=== PATIENT | female | born 1945 | race Caucasian/White ===

== ENCOUNTER → 2024-03-01 14:42 | Outpatient (REF) | payer MEDICARE, OTHER, SELFPAY | LOC: HWRCS 14:42 | PROVIDERS: ATTENDING PHYSICIAN Internal Medicine Cardiovascular Disease; FAMILY PHYSICIAN Internal Medicine | DX: I48.91 Unspecified atrial fibrillation (principal) | CPT/HCPCS: 93306 ==

== ENCOUNTER → 2024-04-25 16:14 | Outpatient (REF) | payer MEDICARE, OTHER, SELFPAY ==
[2024-04-25 17:04] LABS: % Basophils 0.7 % (0-2); % Immature Granulocytes 0.2 % (0-0.5); % Monocytes 7.3 % (1.7-9.3); % Neutrophils 63.8 % (42.2-75.2); Absolute Basophils 0.1 10^3/uL (0-0.2); Absolute Eosinophils 0.7 10^3/uL (0-0.7); Absolute Lymphocytes 1.6 10^3/uL (1.2-3.4); Absolute Monocytes 0.6 10^3/uL (0.1-0.6); Absolute Neutrophils 5.2 10^3/uL (1.4-6.5); Hemoglobin 11.4 g/dL (12.0-16.0); Mean Corp Hgb Conc. 31.7 g/dL (33.0-37.0); Mean Corpuscular Hgb 30.2 pg (27.0-31.0); Mean Corpuscular Volume 95.2 fL (81.0-99.0); Nucleated Red Blood Cells % 0 %; Platelet Count 262 10^3/uL (130-400); Red Blood Cell Count 3.78 10^6/uL (4.20-5.40); Red Cell Dist. Width 12.9 % (11.5-14.5); White Blood Cell Count 8.2 10^3/uL (4.8-10.8)
[2024-04-25 17:15] LABS: ALT (SGPT) 14 U/L (0-35); AST (SGOT) 25 U/L (14-36); Albumin 4.4 g/dl (3.5-5.0); Alkaline Phosphatase 98 U/L (38-126); Blood Urea Nitrogen 12 mg/dl (7-17); Calcium 9.7 mg/dl (8.4-10.2); Carbon Dioxide 25 mmol/L (22-30); Chloride 100 mmol/L (98-107); Glucose 90 mg/dl (70-99); Potassium 5.2 mmol/L (3.5-5.1); Sodium 132 mmol/L (135-145); Total Bilirubin 0.6 mg/dl (0.2-1.3); Total Cholesterol 233 mg/dl (50-199); Total Protein 6.5 g/dl (6.3-8.2); Triglyceride 103 mg/dl (10-149); Very Low Density Lipoprotein 20 mg/dl (0-30); eGFR 57.31
[2024-04-25 17:22] LABS: HDL Cholesterol 120 mg/dl; LDL Cholesterol, Calculated 93 mg/dl
== END ==
LOC: REG 16:14
PROVIDERS: ATTENDING PHYSICIAN Family Medicine
DX: N18.31 Chronic kidney disease, stage 3a (principal); E78.00 Pure hypercholesterolemia, unspecified; E61.1 Iron deficiency
CPT/HCPCS: 36415; 80053; 80061; 82728; 85025

== ENCOUNTER → 2024-06-04 15:17 | Outpatient (REF) | payer MEDICARE, OTHER, SELFPAY ==
[2024-06-04 16:56] LABS: Blood Urea Nitrogen 16 mg/dl (7-17); Calcium 9.9 mg/dl (8.4-10.2); Carbon Dioxide 26 mmol/L (22-30); Chloride 100 mmol/L (98-107); Glucose 79 mg/dl (70-99); Potassium 4.9 mmol/L (3.5-5.1); Sodium 133 mmol/L (135-145); eGFR 41.83
== END ==
LOC: REG 15:17
PROVIDERS: ATTENDING PHYSICIAN Nurse Practitioner Adult Health
DX: I10 Essential (primary) hypertension (principal); N18.31 Chronic kidney disease, stage 3a; E87.1 Hypo-osmolality and hyponatremia
CPT/HCPCS: 36415; 80048

== ENCOUNTER 2025-06-08 23:56 | Emergency (ER) | payer MEDICARE, OTHER, SELFPAY ==
[2025-06-09 00:03] VITALS: BP 120/69
--- NOTE | 2025-06-09 01:00 | ED.GENMED ---
History of Present Illness
General
Chief Complaint: Fall
Source: patient and family
Exam Limitations: none
Time Seen by Provider: 06/09/25 00:26
Nursing documentation reviewed up to this point in time: agreed with
History of Present Illness
History of Present Illness:
79-year-old female past medical of A-fib currently on Eliquis presenting to the emergency department after ground-level fall where she landed directly on her right arm. Adamantly denies any head or neck pain or any head or neck trauma. Pain only
to the shoulder denies additional trauma or concerns.
Past History
Past History
ED Past Medical History: Arrthythmia (Atrial fibrillation), Asthma, HTN and Other (Diverticulitis)
ED Past Surgical History: Appendectomy, Gynecological and Tonsilectomy
Social History
Tobacco: Non-smoker
Alcohol: None
Drug: None
Living: with family
Review of Systems
Review of Systems
Allergies reviewed?: Yes
All Other Systems: ROS reviewed and negative except as documented in HPI and ROS
Phy Exam
Physical Exam
Physical Exam:
GENERAL: Alert , in no apparent distress
EYE: pupils equal and reactive
NECK: Supple, no significant adenopathy.
ENT: o/p clr, mmm.
CARDIAC: Regular rate and rhythm .
LUNGS: Clear breath sounds bilaterally, no acute respiratory distress, no wheezes/rales/rhonchi
ABDOMEN: Soft, without focal tenderness, no r/g, no cvat
NEUROLOGICAL: Alert and oriented, no focal neuro deficits
SKIN: Warm and dry, skin intact.
MUSCULOSKELETAL: Tender palpation to the proximal right humerus discomfort with any movement of the right shoulder, good theater usher strength bilaterally normal sensation bilaterally to the upper extremities, no edema, well perfused.
PSYCH: Normal and appropriate interaction.
Course
Orders/Labs/Results
Orders:
Orders
06/09/25 00:05
CR Humerus - Right Min 2 View* Urgent
Comment:
Reason For Exam: fall, injury
CR Shoulder, Trauma - Right Urgent
Comment:
Reason For Exam: fall, injury
06/09/25 00:58
Sling Right-Treatment ONCE
06/09/25 01:00
Acetaminophen [Tylenol] 1,000 mg .ROUTE .STK-MED ONE
Vital Signs
Initial and Last Documented VS:
Initial Vital Signs
Temp Pulse Resp BP Pulse Ox
97.5 F 64 20 120/69 95
06/09/25 00:03 06/09/25 00:03 06/09/25 00:03 06/09/25 00:03 06/09/25 00:03
Last Documented Vital Signs
Temp Pulse Resp BP Pulse Ox
97.5 F 64 20 120/69 95
06/09/25 00:03 06/09/25 00:03 06/09/25 00:03 06/09/25 00:03 06/09/25 01:02
MDM/Problems Addressed
MDM/Problems Addressed:
7-year-old female presenting to the emergency department today after a ground-level fall hitting her right shoulder. Found to have a proximal humerus fracture on x-ray. Patient is on Eliquis it was recommended the patient to get a CT scan
concerning the proximity of the head and shoulder where the trauma was sustained. She adamantly denied any trauma and would not like to get a CT scan at this time. The risk of not getting CT scan was explained to the patient who demonstrated
understanding. Also the daughter was present as well. Otherwise stable for discharge return precautions given. Given a sling for the right shoulder fracture.
*Pulse Oximetry
SaO2: 95
Oxygen Mode of Delivery: Room air
Patient hypoxic: no (95)
*Critical Care Note
Total Time (30-74mins, 75-104mins- exclusive of procedures): Not Applicable
ED Attending Note
-
Portions of this chart may have been created with voice recognition software.� Occasional wrong word or��sound alike� substitutions may have occurred due to the inherent limitations of voice recognition software.
Discharge Plan
Departure
Patient Disposition: Home (Routine Discharge)
Date of Disposition: 06/09/25
Time of Disposition: 01:00
Patient with high blood pressure during this ER visit?: No
Condition: Good
Covid-19: Not Applicable
Discharge Problem:
Fracture of proximal humerus
Instructions: Preventing falls in adults, Upper Arm Fracture ED
Prescriptions:
No Action
albuterol sulfate 90 MCG/PUFF HFA aerosol inhaler
2 puff inhalation R Q4HPRN PRN (Reason: asthma)
escitalopram oxalate 10 MG tablet
20 mg PO QPM
multivitamin with folic acid [Tab-A-Ramon] 1 TABLET tablet
1 tab PO DAILY
alprazolam 0.5 MG tablet
0.5 mg PO DAILY PRN (Reason: anxiety)
diltiazem HCl 120 MG tablet
120 mg PO DAILY
rosuvastatin 10 MG tablet
10 mg PO QPM
fluticasone propion-salmeterol [Advair HFA] 1 PUFF HFA aerosol inhaler
2 puff inhalation R BID PRN (Reason: allergies)
hydrochlorothiazide 12.5 MG tablet
12.5 mg PO DAILY
apixaban [Eliquis] 5 MG tablet
5 mg PO BID
amphetamine sulfate 10 MG tablet
10 mg PO DAILY
Magnesium
2 tab PO DAILY
cholecalciferol (vitamin D3) [Vitamin D3] 1,000 UNIT capsule
2,000 unit PO DAILY
cyanocobalamin (vitamin B-12) 5,000 MCG tablet,disintegrating
10,000 mcg PO DAILY
albuterol sulfate [Proventil] 2.5 MG/3 ML solution for nebulization
2.5 mg inhalation PRN PRN (Reason: allergies)
losartan 25 MG tablet
25 mg PO QPM
mupirocin 1 APPLIC ointment
1 applic intranasal BID Qty: 1 0RF
ferrous sulfate [iron] 325 MG tablet
325 mg PO DAILY
ondansetron HCl 4 mg tablet
4 mg PO Q12H PRN (Reason: nausea and vomiting) 3 Days Qty: 3 0RF
prednisone 10 mg Tablet
See Rx Instructions .ROUTE .COMPLEX Qty: 45 0RF
Rx Instructions:
Take By Mouth:
50 mg daily x3 days, 40 mg daily x3 days,
30 mg daily x3 days, 20 mg daily x3 days,
10 mg daily x3 days
levofloxacin 500 mg tablet
500 mg PO DAILY 7 Days Qty: 7 0RF
Referrals:
Jose Manuel Delgado MD [Active, Orthopedics] - Follow up in 1 week
Activity Restrictions/Additional Instructions:
You came to the emergency department today with concerns of an injury to your right shoulder. Here your x-ray that showed a proximal humerus fracture. Please use the sling and follow-up closely with orthopedics. Return for any worsening, new or
concerning symptoms.
Interventions
Interventions:
*Risk Screen - Suicide Last Done: 06/09/25 00:03
*General Assessment Last Done: 06/09/25 00:03
*Neglect/Abuse Screening Last Done: 06/09/25 00:03
*ED- Fall Risk Assessment Last Done: 06/09/25 00:23
*ED COVID-19 Vaccine History Last Done: 06/09/25 00:23
ED-Musculoskeletal Assessment Last Done: 06/09/25 00:23
ED- Neurological Assessment Last Done: 06/09/25 00:23
ED-Skin Assessment Last Done: 06/09/25 00:23
Discharge Date and Time
Print Language: SLOVENIAN
[2025-06-09] MEDS: TYLENOL 1000 MG PO (01:03)
== END 2025-06-09 01:17 | disposition home or self-care (01) ==
LOC: EMR 23:56
PROVIDERS: EMERGENCY PHYSICIAN Student in an Organized Health Care Education/Training Program
DX: S42.211A Unspecified displaced fracture of surgical neck of right humerus, initial encounter for closed fracture (principal); W18.30XA Fall on same level, unspecified, initial encounter; I48.91 Unspecified atrial fibrillation; I10 Essential (primary) hypertension; J45.909 Unspecified asthma, uncomplicated; Z79.01 Long term (current) use of anticoagulants
CPT/HCPCS: 99283; 73030; 73060